=== PATIENT | female | born 1990 | race Caucasian/White ===

== ENCOUNTER 2022-05-20 22:51 | Emergency (ER) | payer OTHER ==
[~2022-05-20 22:51] MED LIST: AMOXICILLIN875 MG PO; BACTRIM DS TAB1 EACH PO; CEPHALEXIN500 M1 PO; IBUPROFEN600 MG PO
== END 2022-05-21 00:12 | disposition left against medical advice (07) ==
LOC: ER1 22:51
DX: Z53.21 Procedure and treatment not carried out due to patient leaving prior to being seen by health care provider (principal)

== ENCOUNTER 2022-05-21 08:29 | Emergency (ER) | payer OTHER | END 2022-05-21 08:59 | disposition home or self-care (01) | LOC: ER1 08:29 | DX: L02.413 Cutaneous abscess of right upper limb (principal); L02.416 Cutaneous abscess of left lower limb | CPT/HCPCS: 99282 ==